=== PATIENT | female | born 1935 | race Caucasian/White ===

== ENCOUNTER → 2017-12-03 | Day surgery (SDC) | payer OTHER ==
[~2017-12-03] VITALS: Ht 160 cm; Wt 74.8 kg
[2017-12-03 06:51] VITALS: BP 198/69
[2017-12-03 07:50] VITALS: BP 212/74
== END | disposition home or self-care (01) ==
LOC: DS 06:03 → OR 08:30
DX: H25.12 Age-related nuclear cataract, left eye (principal); I16.0 Hypertensive urgency; I10 Essential (primary) hypertension; E11.9 Type 2 diabetes mellitus without complications; Z79.4 Long term (current) use of insulin; Z53.09 Procedure and treatment not carried out because of other contraindication
CPT/HCPCS: 82962; J2001; J3490; J7030